=== PATIENT | female | born 1970 | race American Indian/Alaskan Native ===

== ENCOUNTER 2016-07-25 16:07 | Inpatient (IN) | payer OTHER ==
[2016-07-25 17:35] LABS: Basophils % (Auto) 0.2 % (0.0-1.8); Hematocrit 39.9 % (30.3-42.9); Hemoglobin 12.8 gm/dl (10.1-14.3); Mean Corpuscular HGB Conc 32 % (30-34); Mean Corpuscular Hemoglobin 29 pg (28-32); Mean Corpuscular Volume 90 fl (79-97); Platelet Count 320 K/mm3 (140-440); Red Blood Count 4.44 M/mm3 (3.65-5.03); Red Cell Distribution Width 14.1 % (13.2-15.2); White Blood Count 8.7 K/mm3 (4.5-11.0)
[2016-07-25 18:00] LABS: Anion Gap 17 mmol/L; Blood Urea Nitrogen 8 mg/dL (7-17); Calcium 9.2 mg/dL (8.4-10.2); Carbon Dioxide 26 mmol/L (22-30); Chloride 99.6 mmol/L (98-107); Glucose 105 mg/dL (65-100); Potassium 3.7 mmol/L (3.6-5.0); Sodium 139 mmol/L (137-145)
[2016-07-25] MEDS ORDERED: ASPIRIN PO ONE (22:32)
[2016-07-25] MEDS ORDERED: ZOFRAN IV ONE (22:32)
[2016-07-25] MEDS ORDERED: MORPHINE IV ONE (22:32)
[2016-07-25] MEDS ORDERED: NITRO-BID 2% TP ONE (22:32)
--- NOTE | 2016-07-25 22:51 | Emergency Department Report ---
HPI - General Chief Complaint: Chest Pain - HPI HPI: Room 8 The patient is a 45-year-old female presenting with a chief complaint of chest pain. The patient states she had a dental extraction yesterday and had taken prophylactic amoxicillin. The patient states she took a hydrocodone this morning at 09:0 approximately one hour later developed substernal chest tightness and nausea without vomiting. Patient states she developed a headache and dizziness. The patient states she went to rest in her bed began feeling better however one hour later her symptoms return. Patient now still complains of chest tightness and nausea. The patient gives her chest tightness a score of 7-8/10. The patient states she had a stress test over 5 years ago but has never had a cardiac catheterization Location: [see above] Duration: [see above] Quality: Tightness Severity: 7-8/10 Modifying factors: [see above] Context: [see above] Mode of transportation: [not driving] ED Past Medical Hx - Past Medical History Previous Medical History?: No - Surgical History Past Surgical History?: Yes Additional Surgical History: Tooth extraction 07/24/2016, 3 - Social History Smoking Status: Never Smoker Substance Use Type: Alcohol (occasional) ED Review of Systems ROS: Stated complaint: CHEST PAIN Other details as noted in HPI Comment: All other systems reviewed and negative Constitutional: denies: diaphoresis, fever Eyes: denies: eye pain, eye discharge, vision change ENT: denies: ear pain, throat pain Respiratory: shortness of breath Cardiovascular: chest pain Endocrine: no symptoms reported Gastrointestinal: nausea. denies: vomiting Genitourinary: denies: urgency, dysuria, discharge Musculoskeletal: denies: back pain, joint swelling, arthralgia Skin: denies: rash, lesions Neurological: headache Psychiatric: denies: anxiety, depression Hematological/Lymphatic: denies: easy bleeding, easy bruising Physical Exam - Physical Exam Vital Signs: Vital Signs 07/25/16 07/25/16 16:20 22:25 Temperature 98.0 F Pulse Rate 64 69 Respiratory 16 16 Rate Blood Pressure 117/79 Blood Pressure 114/69 [Left] O2 Sat by Pulse 100 100 Oximetry Physical Exam: GENERAL: The patient is well-developed well-nourished female lying on stretcher appearing to be in moderate discomfort. [] HEENT: Normocephalic. Atraumatic. Extraocular motions are intact. Patient has moist mucous membranes. NECK: Supple. Trachea midline CHEST/LUNGS: Clear to auscultation. There is no respiratory distress noted. HEART/CARDIOVASCULAR: Regular. There is no tachycardia. There is no gallop rub or murmur. ABDOMEN: Abdomen is soft, nontender. Patient has normal bowel sounds. There is no abdominal distention. SKIN: There is no rash. There is no edema. There is no diaphoresis. NEURO: The patient is awake, alert, and oriented. The patient is cooperative. The patient has normal speech MUSCULOSKELETAL: There is no evidence of acute injury. ED Course Vital Signs 07/25/16 07/25/16 16:20 22:25 Temperature 98.0 F Pulse Rate 64 69 Respiratory 16 16 Rate Blood Pressure 117/79 Blood Pressure 114/69 [Left] O2 Sat by Pulse 100 100 Oximetry ED Medical Decision Making - Lab Data Result diagrams: 07/25/16 16:55 07/25/16 16:55 Laboratory Tests 07/25/16 07/25/16 07/25/16 16:55 16:55 19:05 WBC 8.7 RBC 4.44 Hgb 12.8 Hct 39.9 MCV 90 MCH 29 MCHC 32 RDW 14.1 Plt Count 320 Lymph % (Auto) 24.4 Wilkin % (Auto) 5.0 Eos % (Auto) 0.0 Baso % (Auto) 0.2 Lymph # 2.1 Wilkin # 0.4 Eos # 0.0 Baso # 0.0 Seg Neutrophils % 70.4 H Seg Neutrophils # 6.1 Sodium 139 Potassium 3.7 Chloride 99.6 Carbon Dioxide 26 Anion Gap 17 BUN 8 Creatinine 0.8 Estimated GFR > 60 BUN/Creatinine Ratio 10.00 Glucose 105 H Calcium 9.2 Troponin T < 0.010 < 0.010 - EKG Data -: EKG Interpreted by Me EKG shows normal: sinus rhythm Rate: normal - EKG Data When compared to previous EKG there are: previous EKG unavailable Interpretation: other (no T-wave inversion seen) - Radiology Data Radiology results: image reviewed (chest x-ray) interpreted by me: Chest x-ray-no focal infiltrates, no pneumothorax - Differential Diagnosis allergic reaction, ACS, GERD, endocarditis Critical care attestation.: If time is entered above; I have spent that time in minutes in the direct care of this critically ill patient, excluding procedure time. ED Disposition Clinical Impression: Chest tightness Disposition: OP ADMITTED IP TO THIS HOSP Is pt being admited?: Yes Does the pt Need Aspirin: Yes Condition: Fair Referrals: KATE POSADAS [Other] - 3-5 Days Time of Disposition: 23:10 (hospitalist paged)
--- NOTE | 2016-07-25 23:31 | Admit Criteria Form ---
Admission Criteria Documentation: CARDIOLOGY GRG Clinical Indications for Admission to Inpatient Care ( Place 'X' for any and all applicable criteria): Hospital admission is needed for appropriate care of the patient because of ANY ONE of the following (1): [ ] I. Hemodynamic instability as indicated by ALL of the following (1)(2)(3) (4)(5) [ ]a) Vital signs or other findings not as expected for chronic patient condition or baseline [ ]b) Instability indicated by ANY ONE of the following: [ ]i) Hypotension [ ]ii) Symptomatic Tachycardia unresponsive to treatment ( e.g., analgesia, fluids, sedation as indicated) [ ]iii) Inadequate perfusion indicated by ANY ONE of the following: [ ] 1) Lactic acidosis (> 2 mmol/L) [ ] 2) New abnormal capillary refill (> 3 seconds) [ ] 3) Reduced urine output [ ] 4) New altered mental status [ ]iv) Orthostatic vital sign changes unresponsive to treatment (e.g., fluids) [ ]v) IV inotropic or vasopressor medication required to maintain adequate blood pressure or perfusion [ ] II. Severe heart failure as indicated by ANY ONE of the following(17)(18) [ ]a) Respiratory distress [ ]b) Hypotension [ ]c) Anasarca (refractory to outpatient therapy) [ ]d) Cardiac arrhythmias of immediate concern [ ]e) Myocardial ischemia [ ] III. Cardiac arrhythmias or findings of immediate concern indicated by ANY ONE of the following (19)(20): [ ] a) Heart rhythms that are inherently dangerous or unstable indicated by ANY ONE of the following (21)(22)(23): [ ] i) Resuscitated ventricular fibrillation or cardiac arrest [ ] ii) Ventricular escape rhythm [ ] iii) Sustained ventricular tachycardia (30 seconds or more of ventricular rhythm at greater than 100 beats per minute) [ ] iv) Nonsustained ventricular tachycardia and ANY ONE of the following: [ ] 1) Suspected cardiac ischemia as cause or consequence of ventricular tachycardia [ ] 2) In setting of acute myocarditis [ ] b) Unstable cardiac conduction defects indicated by ANY ONE of the following(23)(24)(25) [ ] i) Type II second-degree atrioventricular block [ ]ii) Third-degree atrioventricular block [ ]iii) New-onset left bundle branch block with suspected myocardial ischemia [ ]c) Any heart rhythm and ANY ONE of the following (21)(22)(26)(27) (28) [ ] i) Continuous long-term ECG monitoring needed (e.g., initiation of drug requiring monitoring for more than 24 hours) [ ] ii) Patient has automatic implanted cardioverter defibrillator that is repeatedly firing, malfunctioning, or in need of immediate adjustment of settings beyond the scope of ambulatory or observation care [ ]d) Heart rhythms of concern due to ANY ONE of the following: [ ] i) Hypotension [ ] ii) Respiratory distress [ ] iii) Association with other significant symptoms (e.g., bradycardia with syncope or ongoing dizziness, supraventricular tachycardia with chest pain (14)(15)(17) [ ] IV. Monitoring for cardiac contusion beyond the scope of observation care needed [A](30)(31)(32) [ ] V. Surgical or device complication (e.g., valve replacement complication , pacemaker dysfunction) (35)(41)(44)(45)(46) [ ] . Inpatient palliative care needed. [B](49) Also use Inpatient Palliative Care Criteria [ ] VII. Nonbacterial thrombotic (marantic) endocarditis (36)(43)(47)(48) [ X] VIII. Cardiology condition, symptom, or finding for which emergency and observation care has failed or are not considered appropriate. [ ] IX. Acute valvular disease requiring inpatient as indicated by ANY ONE of the following (41) [ ]a) Acute valvular regurgitation (42) [ ]b) Noninfectious valvulitis (43) [ ]c) Obstructive valve thrombosis [ ]d) Paravalvular leak [ ]e) Other significant valvular disorder remaining after emergency or observation level of care (as appropriate) [ ]X. Pericardial disease requiring inpatient treatment as indicated by ANY ONE of the following (33)(34)(35)(36)(37) [ ]a) Suspected tamponade (38)(39)(40) [ ]b) Hemopericardium [ ]c) Other significant pericardial disorder remaining after emergency or observation level of care (as appropriate) [ ] XI. Cardiac ischemia beyond scope of emergency and observation care. [ ] XII. Hypertension requiring inpatient treatment as indicated by ANY ONE of the following (6)(7)(8) [ ]a) SBP greater than 220 mm Hg or DBP greater than 120 mmHg despite treatment [ ]b) SBP greater than 140 mm Hg or DBP greater than 100 mm Hg with evidence of acute end organ damage as indicated by ANY ONE of the following [ ] i) Altered mental status [ ] ii) Acute renal failure as indicated by new onset of ANY ONE of the following (9)(10)(11)(12)(13) [ ]1) 3-fold rise in serum creatinine from baseline [ ]2) Serum creatinine greater than 4 mg/dL ( 354 micromoles/L) with acute rise greater than 0.5 mg/dL (44.2 micromoles/L) [ ]3) Reduction of more than 75% in estimated glomerular filtration rate from baseline [ ]4) Estimated glomerular filtration rate less than 35 mL/min/1.73m2 (0.59 mL/sec/1.73m2) in child up to 18 years of age [ ]5) Cessation of urine output indicated by ALL of the following [ ]A. Adequate volume status [ ]B. Inadequate urine output as indicated by ANY ONE of the following [ ]a. Urine output less than 0.3 mL/kg/hr for 24 hours [ ]b. Anuria (urine output less than 0.1 mL/kg/hr) for 12 hours [ ] iii) Aortic dissection [ ] iv) Myocardial Ischemia [ ] v) Left ventricular heart failure [ ]vi) Retinal Hemorrhage [ ]vii) Other significant finding [ ]c) Hypertension in child requiring inpatient treatment as indicated by ALL of the following(14)(15)(16) [ ] i) Outpatient treatment not effective, not available, or not appropriate [ ]ii) SBP or DBP greater than 95th percentile for age [ ]iii) Evidence of acute end organ damage as indicated by ANY ONE of the following [ ]1) Altered mental status [ ]2) Acute renal failure as indicated by new onset of ANY ONE of the following(9)(10)(11)(12)(13) [ ]A. 3-fold rise in serum creatinine from baseline [ ]B. Serum creatinine greater than 4 mg/dL (354 micromoles/L) with acute rise greater than 0.5 mg/dL (44.2 micromoles/L) [ ]C. Reduction of more than 75% in estimated glomerular filtration rate from baseline [ ]D. Estimated glomerular filtration rate less than 35 mL/min/1.73m2 (0.59 mL/sec/1.73m2) in child up to 18 years of age [ ]E. Cessation of urine output indicated by ALL of the following [ ]a. Adequate volume status [ ]b. Inadequate urine output as indicated by ANY ONE of the following [ ]i) Urine output less than 0.3 mL/kg/hr for 24 hours [ ]ii) Anuria ( urine output less than 0.1 mL/kg/hr) for 12 hours [ ]3) Severe headache [ ]4) Visual disturbance [ ]5) Retinal hemorrhage [ ]6) Other significant finding [ ]XIII. Complications of transplanted heart indicated by ANY ONE of the following(61): [ ]a) Acute graft rejection requiring inpatient management (eg, intravenous immunosuppression)(62)(63) [ ]b) Acute graft heart failure indicated by ANY ONE of the following(64): [ ]i) Hemodynamic instability [ ]ii) Cardiac arrhythmias of immediate concern [ ]iii) Pulmonary edema that is very severe (eg, mechanical ventilation needed, imminent or likely, need for 100% oxygen to keep oxygen saturation above 90%) [ ]iv) Pulmonary edema that is persistent as indicated by ALL of the following: [ ]1) New need for oxygen therapy to keep oxygen saturation above 90% (or increased FiO2 need from baseline) [ ]2) Has not improved sufficiently with emergency department or observation care IV diuretics or other heart failure treatments[E] [ ]v) Altered mental status that is severe or persistent [ ]vi) Increased creatinine (new on laboratory test) with reduction of more than 50% in estimated glomerular filtration rate from baseline [ ]vii) Progressively (ongoing) rising creatinine (known from past laboratory test) with reduction of more than 25% in estimated glomerular filtration rate from baseline [ ]viii) Acute renal failure [ ]ix) Acute peripheral ischemia (eg, examination shows pulseless, cool, mottled, or cyanotic extremity) [ ]x) Pulmonary artery catheter monitoring needed [ ]xi) Other sign or symptom of heart failure requiring inpatient treatment (ie, too severe or not responsive to outpatient and observation care treatment) [ ]c) Infection requiring inpatient management (eg, Hemodynamic instability, need for intravenous antimicrobial treatment)(66)(67)(68)(69)(70) [ ]d) Cardiac allograft vasculopathy requiring inpatient management ( eg evidence of cardiac ischemia)(71) [ ]e) Other complication of transplanted heart (eg, stroke, severe pulmonary hypertension, severe valvular dysfunction) requiring inpatient management(72) The original [facility] [employer] content created by [employer] [employer] has been revised. The portions of the content which have been revised are identified through the use of italic text or in bold, and [facility] has neither reviewed nor approved the modified material. All other unmodified content is copyright [facility] [employer]. Please see references footnoted in the original [facility] [employer] edition 2016 Admission Criteria Met: Yes
[2016-07-25] MEDS ORDERED: MORPHINE IV PRN (23:53)
[2016-07-25] MEDS ORDERED: ZOFRAN IV PRN (23:53)
[2016-07-25] MEDS ORDERED: SODIUM CHLORIDE FLUSH SYRINGE 10 ML IV PRN (23:53)
[2016-07-25] MEDS ORDERED: MILK OF MAGNESIA PO PRN (23:53)
[2016-07-25] MEDS ORDERED: DULCOLAX PR PRN (23:53)
--- NOTE | 2016-07-26 00:08 | History and Physical Report ---
History of Present Illness Date of examination: 07/25/16 History of present illness: 45 year old with woman with no medical problems comes emergency room with complaint of chest pain. Pain is in the epigastric area which he describes as tightness, started yesterday, constant, intensity 6/10, no radiation and she cannot identify exacerbating or relieving factors. Admits to nausea, shortness of breath, headache, dizziness, no diaphoresis or palpitation. Patient denies cough, abdominal pain, hematochezia, dysuria, frequency, focal weakness, dysarthria, fever chills, polydipsia polyuria, hot or cold intolerance , easy bruisability, or rash or bleeding from mucosal membrane, rhinorrhea, epistaxis, earache, tinnitus, blurry vision, eye discharge, anxiety, depression. Other review of systems negative PAST SURGICAL HISTORY: , left knee SOCIAL HISTORY:No alcohol, tobacco, drugs FAMILY HISTORY:Hypertension Medications and Allergies Allergies Allergy/AdvReac Type Severity Reaction Status Date / Time hydrocodone Allergy Nausea Verified 07/25/16 22:41 Sulfa (Sulfonamide Allergy Rash Verified 07/25/16 16:32 Antibiotics) Home Medications Medication Instructions Recorded Confirmed Last Taken Type Amoxicillin 500 mg PO TID 07/25/16 07/25/16 Unknown History Active Meds: Active Medications Acetaminophen (Tylenol) 650 mg PO Q4H PRN PRN Reason: Pain MILD(1-3)/Fever >100.5/STROUD Aspirin (Baby Aspirin) 81 mg PO QDAY PRICILA Bisacodyl (Dulcolax) 10 mg WA QDAY PRN PRN Reason: Constipation unrelieved by MOM Enoxaparin Sodium (Lovenox) 40 mg SUB-Q QDAY PRICILA Magnesium Hydroxide (Milk Of Magnesia) 30 ml PO Q4H PRN PRN Reason: Constipation Morphine Sulfate (Morphine) 2 mg IV Q4H PRN PRN Reason: Pain, Moderate (4-6) Ondansetron HCl (Zofran) 4 mg IV Q8H PRN PRN Reason: N/V unrelieved by Reglan Sodium Chloride (Sodium Chloride Flush Syringe 10 Ml) 10 ml IV PRN PRN PRN Reason: LINE FLUSH Exam - Physical Exam Narrative exam: Blood pressure 160/80 Gen. appearance: Patient lying in bed, no apparent distress HEENT: Normocephalic, atraumatic, pupils equally round and reactive to light, extraocular movement intact, and no sclericterus,. No JVD or thyromegaly or nodule,neck supple, no carotid bruit ,mucous membranes moist, no exudate or erythema Heart: S1, S2, regular rate and rhythm Lungs: Clear to auscultation bilaterally, breathing comfortable Abdomen: Positive bowel sounds, nontender, nondistended, no organomegaly Extremity: No edema, cyanosis, clubbing Skin: No rash, nodules, warm, dry Neuro: Oriented 3, cranial nerves II-12 intact, speech is fluent, motor and sensory intact - Constitutional Vitals: Temp Pulse Resp BP Pulse Ox 98.0 F 80 16 124/80 100 07/25/16 16:20 07/25/16 22:58 07/25/16 22:25 07/25/16 22:58 07/25/16 22:25 Results - Labs CBC & Chem 7: 07/25/16 16:55 07/25/16 16:55 Labs: Abnormal lab results 07/25/16 07/25/16 Range/Units 16:55 16:55 Seg Neutrophils % 70.4 H (40.0-70.0) % Glucose 105 H (65-100) mg/dL - Imaging and Cardiology EKG: image reviewed Chest x-ray: image reviewed Assessment and Plan Hypertensive urgency Chest pain, rule out ACS Admit to medicine Start IV hydralazine as needed for blood pressure Check cardiac enzymes, lipid profile and obtain a stress test Start aspirin, IV morphine and DVT prophylaxis
[2016-07-26] MEDS ORDERED: APRESOLINE IV PRN (00:35)
[2016-07-26] MEDS: TYLENOL PO PRN ×2 (02:37→11:13)
[2016-07-26 04:44] LABS: Basophils % (Auto) 0.3 % (0.0-1.8); Eosinophils % (Auto) 0.9 % (0.0-4.3); Hematocrit 36.7 % (30.3-42.9); Hemoglobin 11.7 gm/dl (10.1-14.3); Mean Corpuscular HGB Conc 32 % (30-34); Mean Corpuscular Hemoglobin 29 pg (28-32); Mean Corpuscular Volume 91 fl (79-97); Platelet Count 298 K/mm3 (140-440); Red Blood Count 4.06 M/mm3 (3.65-5.03); Red Cell Distribution Width 14.1 % (13.2-15.2); White Blood Count 6.6 K/mm3 (4.5-11.0)
[2016-07-26 04:53] LABS: Anion Gap 18 mmol/L; BUN/Creatinine Ratio 8.88; Blood Urea Nitrogen 8 mg/dL (7-17); Calcium 8.7 mg/dL (8.4-10.2); Carbon Dioxide 24 mmol/L (22-30); Chloride 101.6 mmol/L (98-107); Creatine Kinase MB 1.8 ng/mL (0.0-4.0); Glucose 92 mg/dL (65-100); Potassium 3.5 mmol/L (3.6-5.0); Sodium 140 mmol/L (137-145)
[2016-07-26 04:55] LABS: Creatine Kinase 356 units/L (30-135)
[2016-07-26] MEDS ORDERED: LEXISCAN IV ONE (08:07)
--- NOTE | 2016-07-26 09:42 | XRay Report ---
Single view chest: History: Chest pain. Findings: One cardiomegaly. Trachea is midline. No consolidation, pneumothorax or pleural effusion. Impression: No acute cardiopulmonary findings.
[2016-07-26] MEDS ORDERED: LOVENOX SUB-Q SCH (10:00)
[2016-07-26] MEDS ORDERED: BABY ASPIRIN PO SCH (10:00)
--- NOTE | 2016-07-26 10:24 | Progress Note ---
Hospitalist Physical - Constitutional Vitals: Temp Pulse Resp BP Pulse Ox 97.8 F 53 L 18 83/48 98 07/26/16 04:30 07/26/16 04:30 07/26/16 04:30 07/26/16 04:30 07/26/16 09:22 Results - Labs CBC & Chem 7: 07/26/16 03:59 07/26/16 03:59 Labs: Laboratory Last Values WBC 6.6 K/mm3 (4.5-11.0) 07/26/16 03:59 RBC 4.06 M/mm3 (3.65-5.03) 07/26/16 03:59 Hgb 11.7 gm/dl (10.1-14.3) 07/26/16 03:59 Hct 36.7 % (30.3-42.9) 07/26/16 03:59 MCV 91 fl (79-97) 07/26/16 03:59 MCH 29 pg (28-32) 07/26/16 03:59 MCHC 32 % (30-34) 07/26/16 03:59 RDW 14.1 % (13.2-15.2) 07/26/16 03:59 Plt Count 298 K/mm3 (140-440) 07/26/16 03:59 Lymph % (Auto) 44.5 % (13.4-35.0) H 07/26/16 03:59 Fillmore % (Auto) 10.3 % (0.0-7.3) H 07/26/16 03:59 Eos % (Auto) 0.9 % (0.0-4.3) 07/26/16 03:59 Baso % (Auto) 0.3 % (0.0-1.8) 07/26/16 03:59 Lymph # 3.0 K/mm3 (1.2-5.4) 07/26/16 03:59 Fillmore # 0.7 K/mm3 (0.0-0.8) 07/26/16 03:59 Eos # 0.1 K/mm3 (0.0-0.4) 07/26/16 03:59 Baso # 0.0 K/mm3 (0.0-0.1) 07/26/16 03:59 Seg Neutrophils % 44.0 % (40.0-70.0) 07/26/16 03:59 Seg Neutrophils # 2.9 K/mm3 (1.8-7.7) 07/26/16 03:59 Sodium 140 mmol/L (137-145) 07/26/16 03:59 Potassium 3.5 mmol/L (3.6-5.0) L 07/26/16 03:59 Chloride 101.6 mmol/L (98-107) 07/26/16 03:59 Carbon Dioxide 24 mmol/L (22-30) 07/26/16 03:59 Anion Gap 18 mmol/L 07/26/16 03:59 BUN 8 mg/dL (7-17) 07/26/16 03:59 Creatinine 0.9 mg/dL (0.7-1.2) 07/26/16 03:59 Estimated GFR > 60 ml/min 07/26/16 03:59 BUN/Creatinine Ratio 8.88 % 07/26/16 03:59 Glucose 92 mg/dL (65-100) 07/26/16 03:59 Calcium 8.7 mg/dL (8.4-10.2) 07/26/16 03:59 Total Creatine Kinase 356 units/L (30-135) H 07/26/16 03:59 CK-MB (CK-2) 1.8 ng/mL (0.0-4.0) 07/26/16 03:59 CK-MB (CK-2) Rel Index 0.5 (0-4) 07/26/16 03:59 Troponin T < 0.010 ng/mL (0.00-0.029) 07/26/16 03:59
[2016-07-26 10:46] VITALS: BP 105/63
[2016-07-26] MEDS ORDERED: TRIMOX PO SCH ×2 (11:00→14:00)
[2016-07-26 11:39] LABS: Creatine Kinase MB 1.6 ng/mL (0.0-4.0)
[2016-07-26 11:40] LABS: Creatine Kinase 322 units/L (30-135)
--- NOTE | 2016-07-26 12:20 | Discharge Summary ---
Providers - Providers Date of Admission: 07/25/16 23:53 Date of discharge: 07/26/16 Attending physician: SESAR ROCHA 07/26/16 10:24 Consult to Physician [CONS] Routine Consulting Provider: LEILNAI LAMAR Reason For Exam: Chest pain Place consult to:: Dr. Lamar Notified:: yes Phone number called:: [phone] If yes, spoke with:: Patience Time called:: 11:55 Hospitalization Condition: Fair Disposition: DISCHARGED TO HOME OR SELFCARE - Discharge Diagnoses (1) Chest pain in adult Status: Acute Comment: due to GERD (2) GERD (gastroesophageal reflux disease) Status: Acute Qualifiers: Esophagitis presence: without esophagitis Qualified Code(s): K21.9 - Gastro -esophageal reflux disease without esophagitis (3) Obesity (BMI 30.0-34.9) Status: Chronic Exam - Constitutional Vitals: Temp Pulse Resp BP Pulse Ox 98.1 F 58 L 18 105/63 98 07/26/16 08:55 07/26/16 08:55 07/26/16 08:55 07/26/16 08:55 07/26/16 09:22 Plan Activity: no restrictions Diet: low fat, low cholesterol Additional Instructions: 1.Follow up with primary care physician in one week. 2.Follow up with Dr. Lamar, Cardiology in 3-5 days. Follow up with: KATE POSADAS [Other] - 3-5 Days Forms: Work/School Release Form Prescriptions: Aspirin EC [Aspirin Enteric Coated TAB] 81 mg PO QDAY #30 tablet. Famotidine [Pepcid] 20 mg PO BID #30 tablet
--- NOTE | 2016-07-29 08:41 | Query- Chest Pain ---
Josefina Rockwell Date:_07/29/16 Environmental Services Floor Tech/CDS:_Sveta/Heber Fox Phone#:_[phone] Exercise your independent professional judgment when responding to query. Questions asked do not imply a particular answer is desired or expected. We greatly appreciate your clarification on this issue. Clinical Documentation States: 45 Y/O Female admitted on 07/25/16 with no PMH presents with chest pain in the epigastric area described as tightness, started yesterday, constant, 11/15 no radiation, no exacerbating or relieving factors. Clinical Findings Show: EKG:Sinus bradycardia with 1st degree AV block Imaging: Chest x-ray: no acute cardiopulmonary findings O2%: 98% Troponin:Negative X3 Please document the etiology of Chest Pain: [ ] Myocardial Infarction [ ] Pneumonia [ ] Mediastinitis [ ] Costochondritis [ ] Pulmonary Embolism [ ] Coronary Artery Disease [x] GERD [ ] Other: [ ] Comment/Explanation: Present on Admission: [ x] Yes (Y) [ ] Clinically undeterminable (W) [ ] No(N) Please document response in your Progress Notes and/or Discharge Summary and indicate if the condition was present on admission. SOFÍA
== END 2016-07-26 18:26 | disposition home or self-care (01) | DRG 392 ==
LOC: ED 16:07 → 4A 23:53
PROVIDERS: ADMIT Internal Medicine; ATTEND Internal Medicine
DX: K21.9 Gastro-esophageal reflux disease without esophagitis (principal); I16.0 Hypertensive urgency; E66.9 Obesity, unspecified; Z68.31 Body mass index [BMI] 31.0-31.9, adult; Z82.49 Family history of ischemic heart disease and other diseases of the circulatory system; Z88.5 Allergy status to narcotic agent; Z88.2 Allergy status to sulfonamides
CPT/HCPCS: 36415; 71010; 80048; 80061; 82550; 82553; 84484; 85025; 85379; 93005; 93010; 93017; 96374; 96375; J1650; J2270; J2405; J2785